=== PATIENT | male | born 1955 | race Caucasian/White ===

== ENCOUNTER 2016-12-01 07:11 | Observation (INO) | payer OTHER ==
[~2016-12-01] VITALS: Ht 175.3 cm; Wt 76.4 kg
[2016-12-01] VITALS (12 sets, daily range): BP systolic 112–156; BP diastolic 63–116; PULSE 93–111; RESP 20–28; O2SAT 92–99
[~2016-12-01 07:11] MED LIST: HYG25 PO; LISI10TA PO
--- NOTE | 2016-12-01 07:22 | ED.REPORT ---
HPI-Dyspnea / Wheezing Date of Service Dec 01, 2016 ED Provider: Kira Warren MD Pt is a 61 year old male with a hx of COPD, anxiety and HTN who presents to the ED via EMS with dyspnea onset last night. His reports that his most recent severe exacerbation was four months ago and his breathing has been getting worse with the recent cold weather. He was having trouble breathing yesterday and his symptoms have increased in severity since. Pt last saw his doctor on Tuesday. Patient is gasping for air and is only able to speak a few words intermittently. Hx is obtained from his and pt nods in response to questions. Nursing Notes Stated Complaint: SOB Chief Complaint: Respiratory Distress Nursing Notes Reviewed: Yes Allergies: Coded Allergies: No Known Allergies (Unverified , 10/17/16) Scheduled Azithromycin (Zithromax) 250 Mg Tablet 500 MG PO DAILY Chlorthalidone (Chlorthalidone) 25 Mg Tablet 25 MG PO DAILY Citalopram (Citalopram) 40 Mg Tablet 40 MG PO HS Ipratropium R[place] (Atrovent HFA) 200 Puff/12.9 Gm Inhaler 2 PUFF INH QID Lisinopril (Lisinopril) 10 Mg Tablet 10 MG PO DAILY Mometasone/Formoterol (Dulera 100 Mcg/5 Mcg Inhaler) 13 Gm Hfa.aer.ad 13 GM IH BID Nicotine 7 mg/24 hr Patch (Nicotine 7 mg/24 hr Patch) 1 Each Patch.td24 1 PATCH TOPICAL DAILY Prednisone (PredniSONE) 20 Mg Tablet 40 MG PO DAILY Scheduled PRN ([Dextromethorphan Polistirex]) 6 MG/ML SUSPENSION 30 MG PO Q12H PRN PRN For Cough Albuterol Sulfate (Ventolin HFA Inhaler) 200 Puff/18 Gm Inhaler 2 PUFF INH Q4 PRN PRN For Wheezing Ipratropium/Albuterol Sulfate (Iprat-Albut 0.5-3(2.5) mg/3 mL Inhalant Soln) 3 Ml Ampul.neb 3 ML IH Q6 PRN PRN For Shortness of Breath Naproxen (Naproxen) 500 Mg Tab 500 MG PO BID PRN PRN For Pain General Time Seen by MD: 07:22 Chief Complaint Other (dyspnea) Hx Obtained From: Spouse Arrived By: Ambulance Sudden in Onset?: Yes Onset Occurred: 1 day ago Symptom Duration: Since onset Recent Healthcare: Recent doctor visit Similar Sx Previous: Yes Past Medical History Past Medical History Notes: full code including intubation discussed in ER (12/01/16) Past Medical History Reports: COPD, Hyperlipidemia, Hypertension Reports: Depression Past Surgical History Denies Smoking History Current Every Day Smoker Social History Other Social History: Ambulatory Status Independent Review of Systems Unable to Obtain ROS Patient condition Physical Exam Initial Vital Signs Vital Signs (First) Date Time Temp Pulse Resp B/P Pulse Ox O2 Delivery O2 Flow Rate FiO2 12/01/16 07:17 36.7 97 22 155/65 94 Nasal Cannula 2 12/01/16 07:51 95 Initial VS: Reviewed Head / Eyes: Atraumatic, Normocephalic, PERRL ENT: Mucous membranes moist, Conjunctiva normal, No scleral icterus Abdomen / GI: Soft, Non-tender, No guarding, No rebound, No distention Skin: Warm, Dry, No cyanosis Neurologic: Alert, Oriented, Nonfocal Psychiatric: Mood/affect normal, Behavior normal, Normal thought content General/Constitutional: Awake, Alert, Cooperative Neck: Atraumatic, Supple, Full range of motion Resp Distress / Stridor: Positive: Resp distress severe acute COPD exacerbation tripoding and unable to speak even small words minimal air movement Cardiovascular: Heart rate NL, Regular rhythm, Heart sounds NL, No gallop, No murmurs, No rubs Interpretation & Diagnostics Lab Results Interpretation Result Diagram: 12/02/1631412/02/165 Test 12/01/16 07:40 12/01/16 09:53 12/01/16 10:00 12/01/16 10:26 D-Dimer < 0.5mg/L (<0.50) Lactic Acid Level 0.6mmol/L (0.4-2.0) Troponin T 0.010ug/L (0.0-0.011) Pro-B-Type Natriuretic Peptide 165.8pg/mL (0-210) Procalcitonin 0.05ng/mL (0.00-0.08) Urine Color Straw (YELLOW) Urine Appearance Hazy (CLEAR,HAZY) Urine pH 5.0 (5.0-8.0) Urine Specific [place] 1.030 (1.003-1.035) Urine Protein Negativemg/dL (NEG,TRACE) Urine Glucose (UA) Negativemg/dL (NEGATIVE) Urine Ketones Negativemg/dL (NEGATIVE) Urine Occult Blood Negative (NEGATIVE) Urine Nitrite Negative (NEGATIVE) Urine Bilirubin Negative (NEGATIVE) Urine Urobilinogen Normalmg/dL (NORMAL) Urine Leukocyte Esterase Negative (NEGATIVE) Urine RBC 0-2/hpf (0-2) Urine WBC 0-5/hpf (0-5) Urine Epithelial Cells Occasional/hpf (NONE-MOD) Urine Crystals None seen (NONE SEEN) Urine Bacteria Few/hpf (NONE-FEW) Urine Hyaline Casts Occasional/lpf (NONE) Urine Granular Casts None seen (NONE SEEN) Urine Waxy Casts None seen (NONE SEEN) Urine Red Blood Cell Casts None seen (NONE SEEN) Urine White Blood Cell Casts None seen (NONE SEEN) Urine Mucus Present (None Seen) Urine Trichomonas None seen (NONE SEEN) Urine Yeast None (NONE SEEN) Urinalysis Comment None Urine Culture Reflexed Not indicated Urine Legionella pneumophilia Ag Negative (Negative) Hold Urine Received (Received) Lab Results Interpretation: Blood gas report: pCO2 (67) pO2 (168.0) cHC)3 (29.6) CBase (1.5) ECG Interpretation ECG Interpretation: Bilateral englargement RBBB and LAFB Time: 07:34 Interpreted by: ED physician Normal ECG Interpretation: Normal sinus rhythm (96) X-Ray Chest Interpretation Chest Xray Interpretation: IMPRESSION: Suggests developing right sided pneumonia View: Portable Interpretation / Wet Read by: Wet read ED physician Re-Eval/Medical Decision Med Decision/Clinical Course presents with severe resp distress. Initial duoneb and 20mg albuterol, fluid, 2gm IV mag, 125mg soulmedrol improved enough to hear dramatic wheeze in all lung howard. Still wignificant work of breathing, accessory muscle use and only 1-2 words. ABG drawn at his point showing a respiratory acidosis. BiPap started. Pt tolerated with some IV ativan for anxiety related to claustrophobia. Primary process appears to be severe COPD but infectious etiolgy is not ruled out and CAP abx are started in the ER. Stable on Bipap. Admitted to hospitalist, PCU level care Re-Evaluation/Progress #1: Time of Eval: 09:24 Patient Status: Condition improved, Mild relief Re-Evaluation/Progress Note: Patient rechecked. Breathing has improved slightly. Informed pt that x-ray shows developing pneumonia. Air movement improved to the point of severe diffused wheezes. Pt can now utter a few words. Discussed need to do a blood gas. Stats at 85% on 41 nasal canula, changed to nonrebreather. Critical care time 30 min. Re-Evaluation/Progress #2: Time of Eval: 10:53 Patient Status: Condition improved, Mild relief Re-Evaluation/Progress Note: Patient rechecked. Informed patient of lab results and need for another blood gas. Informed of need for admission. Pt understands and agrees with plan. All questions addressed. Consultation : Referral / Consult Name: Tre Mullins MD Consulted With: Hospitalist Call Returned at: 11:07 Test Worker: Agrees with eval, Agrees with plan Note: Case discussed. Agrees with plan. Counseled Regarding: Diagnosis, Lab results, Need for admission Discharge & Departure Impression: Primary Impression: Hypercapnic respiratory failure Chronicity: unspecified Qualified Code: J96.92 - Respiratory failure, unspecified with hypercapnia Additional Impressions: COPD with acute exacerbation Respiratory distress Pneumonia Pneumonia type: due to unspecified organism Laterality: right Lung location : unspecified part of lung Qualified Code: J18.9 - Pneumonia, unspecified organism Ruled Out: Sepsis Disposition: ADMITTED TO HOSPITAL Discharge Condition All VS Reviewed: Yes Condition: Stable Referrals: Marlon Gaviria DO (PCP) Crit Care Except Billable Proc Time Spent: 30-74 minutes Services Performed: Patient management by me, Time spent at bedside, Reviewing test results, Reviewing imaging, Discussing patient care, Documentation in record, Time with fam/surrogate Scribe Attestation Portion of this note were transcribed by Cecilia Cardoso. I, Dr. Warren, personally performed the history, physical exam, and medical decision-making: I reviewed and confirmed the accuracy for the information in the transcribed note. Signed by: hero York, 12/01/16 0900 copies to: Marlon Gaviria Shawna L MD Dec 01, 2016 07:22 CECILIA CARDOSO Dec 01, 2016 07:34 (Received) Lab Results Interpretation: Blood gas report: pCO2 (67) pO2 (168.0) cHC)3 (29.6) CBase (1.5) ECG Interpretation ECG Interpretation: Bilateral englargement RBBB and LAFB Time: 07:34 Interpreted by: ED physician Normal ECG Interpretation: Normal sinus rhythm (96) X-Ray Chest Interpretation Chest Xray Interpretation: IMPRESSION: Suggests developing right sided pneumonia View: Portable Interpretation / Wet Read by: Wet read ED physician Re-Eval/Medical Decision Re-Evaluation/Progress #1: Time of Eval: 09:24 Patient Status: Condition improved, Mild relief Re-Evaluation/Progress Note: Patient rechecked. Breathing has improved slightly. Informed pt that x-ray shows developing pneumonia. Air movement improved to the point of severe diffused wheezes. Pt can now utter a few words. Discussed need to do a blood gas. Stats at 85% on 41 nasal canula, changed to nonrebreather. Critical care time 30 min. Re-Evaluation/Progress #2: Time of Eval: 10:53 Patient Status: Condition improved, Mild relief Re-Evaluation/Progress Note: Patient rechecked. Informed patient of lab results and need for another blood gas. Informed of need for admission. Pt understands and agrees with plan. All questions addressed. Consultation : Referral / Consult Name: Tre Mullins MD Consulted With: Hospitalist Call Returned at: 11:07 Test Worker: Agrees with eval, Agrees with plan Note: Case discussed. Agrees with plan. Counseled Regarding: Diagnosis, Lab results, Need for admission Discharge & Departure Impression: Primary Impression: Hypercapnic respiratory failure Chronicity: unspecified Qualified Code: J96.92 - Respiratory failure, unspecified with hypercapnia Additional Impressions: COPD with acute exacerbation Respiratory distress Pneumonia Pneumonia type: due to unspecified organism Laterality: right Lung location : unspecified part of lung Qualified Code: J18.9 - Pneumonia, unspecified organism Ruled Out: Sepsis Disposition: ADMITTED TO HOSPITAL Discharge Condition All VS Reviewed: Yes Condition: Stable Referrals: Marlon Gaviria DO (PCP) Hero Attestation Portion of this note were transcribed by Cecilia Cardoso. I, Dr. Warren, personally performed the history, physical exam, and medical decision-making: I reviewed and confirmed the accuracy for the information in the transcribed note. Signed by: hero York, 12/01/16 0900 copies to: Marlon Gaviria Shawna L MD Dec 01, 2016 07:22 CECILIA CARDOSO Dec 01, 2016 07:34 CECILIA CARDOSO 8, 2017 07:34
[2016-12-01] MEDS ORDERED: 0.9% Sodium Chloride 1,000 ML IV ONE (07:24)
[2016-12-01] MEDS ORDERED: cefTRIAXone Inj 2,000 MG in Dextrose 5% Minibag Plus 50 ML IV ONE (07:25)
[2016-12-01] MEDS ORDERED: MethylprednisoLONE Sodium Succinate 62.5 mg/mL 2 mL Inj IVPUSH ONE (07:25)
[2016-12-01] MEDS ORDERED: Azithromycin Inj 500 MG in Dextrose 5% w/Vial Mate 250 ML IV ONE (07:25)
[2016-12-01] MEDS ORDERED: Magnesium Sulf 2 Gm/50mL Water 2 GM in IV Premix 1 EACH IV ONE (07:25)
[2016-12-01] MEDS ORDERED: Albuterol-Ipratropium 3 mL Inhalation Solution NEB ONE (07:25)
[2016-12-01] MEDS ORDERED: Albuterol 2.5 mg/3 mL Inhalation Solution NEB ONE (07:25)
[2016-12-01] MEDS ORDERED: NPR500T PO (07:57)
[2016-12-01] MEDS ORDERED: CITA40TA13 PO (07:57)
[2016-12-01] MEDS ORDERED: ALBU18HF INH (07:58)
[2016-12-01] MEDS ORDERED: ATRINH INH (07:59)
[2016-12-01] MEDS ORDERED: IPRA3AMP IH (07:59)
[2016-12-01 08:01] LABS: BASOPHILS % (AUTO) 0.3 % (0-3); EOSINOPHILS % (AUTO) 6.4 % (0-5); MONOCYTES % (AUTO) 6.7 % (4-12); Mean Corpuscular Volume 90.8 fL (81-100); NEUTROPHILS % (AUTO) 61.4 % (40-74); Platelet Count 291 bil/L (150-400)
[2016-12-01 08:20] LABS: TROPONIN T 0.01 ug/L (0.0-0.011)
--- NOTE | 2016-12-01 09:43 | DRSVH ---
PROCEDURE: X-RAY CHEST ONE VIEW, PORTABLE ([id number]) INDICATIONS: DYSPNEA TECHNIQUE: One view of the chest was acquired. COMPARISON: None. FINDINGS: Surgical changes and devices: None. Lungs and pleura: No pleural effusions or pneumothorax. Lungs are clear. Mediastinum: Mediastinal contours appear normal. Heart size is normal. Bones and chest wall: No suspicious bony lesions. Overlying soft tissues appear unremarkable. IMPRESSION: No acute cardiopulmonary disease. Dictated by: Ming Peng [facility] Interpreted: Linda Bell MD on 12/01/2016 at 9:42 Transcribed by: JOSUE on 12/01/2016 at 9:42 Approved by: Linda Bell MD, PhD on 12/01/2016 at 17:06
[2016-12-01 10:07] LABS: APPEARANCE,URINE HAZY (CLEAR,HAZY); COLOR,URINE STRAW (YELLOW); OCCULT BLOOD,URINE NEGATIVE (NEGATIVE); UROBILINOGEN,URINE NORMAL (NORMAL)
--- NOTE | 2016-12-01 10:22 | ABG ---
DateTimeAnalyzed 10:17:00 -_ pH ____7.269 - 7.350 7.450 pCO2 ___66.7__ -mmHg 35.0 45.0 pO2 168 -mmHg 69.0 116 HCO3- ___29.6__ -mmol/L 22.0 26.0 ABE ____1.5__ -mmol/L -2.0 2.0 tHb ___12.6__ -g/dL O2Hb ___96.8__ -% COHb ____1.0__ -% MetHb ____1.0__ -% sO2 ___98.8__ -% 25.0 FIO2 ___60.0__ -% Drawn By jmw - Date/Time Notified____ 10:22:00 -_ Liter_Flow ___15.0__ -L/min Oxygen Device 1 NON RE-FERDINAND - Notified By JMW - Notified Whom DR LAURSEN - B 755 -mmHg tO2 ___17.4__ -Vol% OrderingPhysicianInitials sl - James test _Positive -
[2016-12-01] MEDS ORDERED: Albuterol 1.25 mg/3 mL Inhalation Solution NEB PRN (11:10)
[2016-12-01] MEDS ORDERED: Alum-Mag Hydrox-Simeth 30 mL Suspension PO PRN ×2 (11:10→14:30)
[2016-12-01] MEDS ORDERED: Ondansetron 2 mg/mL 2 mL Inj IVPUSH PRN ×2 (11:10→14:30)
[2016-12-01] MEDS: 0.9% Sodium Chloride 1,000 ML IV SCH ×2 (11:55→22:49)
--- NOTE | 2016-12-01 13:05 | NUR ---
Bipap Pt was placed on Bipap just prior to coming to PCC floor. Pt also has anxiety about Bipap and therefore given 1mg of IV ativan with good effect. Pt placed on continuos pulse ox for both bipap and high TEO score.
[2016-12-01] MEDS ORDERED: Albuterol-Ipratropium 3 mL Inhalation Solution NEB SCH (14:30)
[2016-12-01] MEDS ORDERED: Polyethylene Glycol (PEG) 17 Gm Powder PO PRN (14:30)
[2016-12-01] MEDS ORDERED: Dextromethorphan Polistirix 6 mg/mL 90 mL Suspension PO PRN (15:10)
[2016-12-01] MEDS ORDERED: MethylprednisoLONE Sodium Succinate 40 mg/mL Inj IVPUSH SCH (15:30)
[2016-12-01] MEDS: MethylprednisoLONE Sodium Succinate 62.5 mg/mL 2 mL Inj IVPUSH SCH ×2 (15:56→19:49)
[2016-12-01] MEDS: Heparin 5,000 Unit/mL Inj SUBQ SCH ×2 (15:56→19:49)
[2016-12-01] MEDS: guaiFENesin 20 mg/mL 10 mL Syrup PO PRN (15:56)
[2016-12-01] MEDS ORDERED: LORazepam 0.5 mg Tablet PO PRN (17:15)
--- NOTE | 2016-12-01 17:23 | PCM.HPMED ---
Subjective Date of Service Dec 01, 2016 Primary Provider: Admitting Physician: Tre Mullins MD Primary Care Physician: aMrlon Gaviria DO Attending Physician: Tre Mullins MD Chief Complaint: Shortness of breath History of Present Illness: Mr. Patrick Perez is a 61 year old male with a history of COPD, anxiety, hypertension and hyperlipidemia who presents to the ED via EMS with dyspnea onset last night. His reports that his most recent severe exacerbation was four months ago and his breathing has been getting worse with the recent cold weather. He was having trouble breathing yesterday and his symptoms have increased in severity since, to the point that he used nebulizers twice this morning without any relief. His checked his O2 saturation and found it at 79%, and called EMS. He reports increasing shortness of breath on exertion to the point that he cannot walk around his living room, possibly worse on lying supine. He also reports a worsening nonproductive cough, wheezing, and reports he has been awakened multiple times with shortness of breath. He denies nausea, vomiting, diarrhea, fevers, chills, chest pain, sinus congestion, sore throat, recent URI symptoms, or sick contacts. He is not on home oxygen. He recently changed his inhaled steroid from Qvar to Aerospan and has been unable to tolerate Aerospan, so has not been on an inhaled steroid. He has been having dyspnea on and off for the last month. The last few days he has been using his inhaler more than 5 times per day and his nebulizer more than 2 times per day. In the ED, he was afebrile, HR 99, RR 24, O2 93 on nasal cannula. WBC 11.8. CBC and CMP otherwise fairly normal. CXR suggests possible developing right sided pneumonia. ABG showed pH 7.27, pCO2 67, bicarb 29.6. Pt in significant respiratory distress and tripoding in the ED and was placed on BiPAP. Review of Systems: Comprehensive review of systems conducted and was negative except for the pertinent positives listed above. 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 40 year pack history.) Smoking Status: Current Every Day Smoker Exam Vital Signs Vital Sign - Last Date Time Temp Pulse Resp B/P Pulse Ox O2 Delivery O2 Flow Rate FiO2 12/01/16 16:50 Supplement Oxygen 12/01/16 15:20 36.5 109 24 139/71 94 11.00 12/01/16 12:40 40 Exam General: Alert, Oriented X3, Cooperative, Moderate respiratory distress, leaning forward, accessory muscles use. On BiPAP, able to speak 2-3 work sentences. Head: Normocephalic, atraumatic. External ears normal. Eyes: PERRLA, EOMI. Anicteric sclerae. Mouth: Mouth Normal, Mucous Membranes Dry Neck: Neck supple with full range of motion. Chest & Lungs: Poor breath sounds, wheezes and rhonchi present. Cardiovascular: Regular Rate/Rhythm, Normal S1, Normal S2, No Murmurs/Rubs/ Gallops Abdomen: Non-tender, Non-distended, No masses, Normoactive bowel tones, Soft Musculoskeletal: Normal Range of Motion Extremities: No cyanosis/clubbing/edema bilaterally Neurological: Grossly Neurologically Intact, Normal Speech Lab and Diagnostics Result Diagram: 12/01/1673912/01/16739 Assessment & Plan Mr. Patrick Perez is a 61 year old male with a history of COPD, anxiety, hypertension and hyperlipidemia who presents to the ED via EMS with dyspnea onset last night. Admitted for acute hypercapnic respiratory failure and COPD exacerbation. 1. Acute hypercapnic respiratory failure. Present on admission. Active. - ABG showed pH 7.27, pCO2 67, bicarb 29.6. Took patient off BiPAP, placed on nasal cannula. Secondary to acute COPD exacerbation. - BiPAP as needed, wean off as tolerated to supplemental oxygen - Keep O2 sat 88-92%. 2. Acute on chronic COPD exacerbation. Present on admission. Active. - He is currently on Albuterol and ipratropium inhalers at home, but will need to be on a long-acting beta agonist and an inhaled steroid by discharge. - Received Solu-Medrol 125 mg in ED - Solu-Medrol 60 mg QID for 1 day, then decrease dose - Duoneb QID while awake - Albuterol neb q2h PRN - Azithromycin 500 mg PO daily - Guaifenesin and Dextromethorphan 3. Possible pneumonia, acute. Present on admission. - CXR suggests possible developing right sided pneumonia, although this is questionable. - Respiratory viral PCR ordered - Blood and sputum cultures ordered - Urine Legionella and Strep ordered 4. Tobacco use, chronic. - Pt smoked 40 pack years, cut down from 1 pack/day to 3 cigarettes/day last . - Advised pt to quit smoking. - Nicotine patch 5. Anxiety and depression - Pt reports significant anxiety worsened by shortness of breath and wearing BiPAP - Ativan PO TID PRN anxiety - Continue citalopram 6. Hypertension, chronic. - Continue chlorthalidone and lisinopril 7. Hyperlipidemia, chronic - Bowel regimen as needed - Antiemetic as needed INPATIENT: Patient is admitted under inpatient status with expected length of stay greater than 2 midnights due to severity of presenting symptoms, risk of adverse event, and complexity of treatment plan. Pain Evaluation: Adequate Pain Control VTE Prophylaxis: Sub-Q Heparin (Unfractionated) Resuscitation Status: CPR: Attempt Resuscitation Attending Statement The patient was seen and examined together with Dr. Mirza on 12/01/2016 and I agree with the history, exam and plan as outlined in the note above. . Juan C Mirza Dec 01, 2016 17:23 Tre Mullins MD Dec 03, 2016 17:36
[2016-12-01] MEDS: Albuterol-Ipratropium 3 mL Inhalation Solution NEB SCH (21:06)
[2016-12-02] VITALS (7 sets, daily range): BP systolic 133–143; BP diastolic 67–80; PULSE 72–95; RESP 16–22; O2SAT 90–99
--- NOTE | 2016-12-02 00:17 | NUR ---
BiPAP/SOB/COUGH Pt c/o SOB r/t aggressive coughing fits. Pt on 2L NC sating in low 90's at this time. Pt did receive guaifenisen with codeine with good results. Pt did request to not be on BiPAP this evening due to his claustrophobia and the BiPAP mask. RT agreed and pt remained on 2L NC with the continuos pulse oximeter on. Pt's SPO2 remained stable in the low 90's.
[2016-12-02] MEDS: guaiFENesin 20 mg/mL 10 mL Syrup PO PRN ×2 (03:17→05:17)
[2016-12-02 03:43] LABS: BASOPHILS % (AUTO) 0 % (0-3); EOSINOPHILS % (AUTO) 0 % (0-5); MONOCYTES % (AUTO) 4.2 % (4-12); Mean Corpuscular Hemoglobin 30.7 pg (27.0-35.0); Mean Corpuscular Volume 92.2 fL (81-100); NEUTROPHILS % (AUTO) 75.5 % (40-74); Platelet Count 253 bil/L (150-400)
[2016-12-02] MEDS: Albuterol-Ipratropium 3 mL Inhalation Solution NEB SCH ×2 (06:34→11:07)
[2016-12-02] MEDS: 0.9% Sodium Chloride 1,000 ML IV SCH (08:51)
[2016-12-02] MEDS: MethylprednisoLONE Sodium Succinate 62.5 mg/mL 2 mL Inj IVPUSH SCH (08:52)
[2016-12-02] MEDS: Heparin 5,000 Unit/mL Inj SUBQ SCH (08:54)
[2016-12-02] MEDS ORDERED: FLUT1DIS5 IH (11:07)
--- NOTE | 2016-12-02 11:09 | NUR ---
Respiratory BiPap on [place], Pt stated did not use last night, not feeling SOB
--- NOTE | 2016-12-02 12:00 | NUR ---
Ambulation Pt ambulating in hallway on RA and O2 stayed between 88%-90%. No c/o pain, SOB or dizziness.
[2016-12-02] MEDS ORDERED: NIC7 TOPICAL (12:05)
[2016-12-02] MEDS ORDERED: ZIT250 PO (12:05)
[2016-12-02] MEDS ORDERED: DEXTROMETHORPHAN POLISTIREX PO (12:05)
[2016-12-02] MEDS ORDERED: PRE20 PO (12:05)
--- NOTE | 2016-12-02 12:09 | PCM.DIMED ---
Meghna Thompson DO 12/02/16 1209: Discharge Instructions Date of Service Dec 02, 2016 Dates of Hospitalization Dec 01, 2016 at 11:12 Discharge Diagnosis Discharge Diagnosis 1. Acute hypercapnic respiratory failure 2. Acute on chronic COPD exacerbation 3. Possible pneumonia 4. Tobacco use 5. Anxiety and depression 6. Hypertension 7. Hyperlipidemia Diet Heart Healthy Activity Limited until seen by PCP Call your provider Fever or Chills, Shortness of breath, Bleeding, Chest pain, Weakness (unilateral ) Patient Instructions Continue your albuterol inhaler as needed for shortness of breath or wheezing and ipratropium inhaler twice per day as previously prescribed. Also, continue to use your nebulizer treatments as needed for shortness of breath or wheeze. Start the mometasone/formoterol (Dulera) inhaler by inhaling 2 puffs in the morning and 2 puff in the evening each day. Make sure that you rinse your mouth with water after using this inhaler. Take prednisone 20 mg tablets by taking 2 tablets by mouth once daily for 5 days. Finish the azithromycin 250 mg tablets antibiotics by taking 2 tablets by mouth each day for 5 days. You can continue to take dextromethorphan (Delsym) 6 mg/mL suspension by taking 30 mg (5mL) of the cough syrup every 12 hours as needed for cough. I encourage you to quit smoking. I have prescribed nicotine patches for you to use and you can apply one patch to your upper arm once per day. Remove the previous patch before applying a new patch. You can also call 1-294-BVTU-NOW as a resource. Follow up with your primary care provider in 1 week. Follow-up Provider: Ted Townsend DO Follow-up with PCP in: 1 week Tre Mullins MD 12/03/16 1735: Discharge Instructions Attending's Statement The patient was seen and examined together with Dr. Thompson on 12/02/2016 and I agree with the history, exam and plan as outlined in the note above. . Meghna Thompson DO Dec 02, 2016 12:09 Tre Mullins MD Dec 03, 2016 17:35
[2016-12-02] MEDS ORDERED: MOME13HF2 IH (13:11)
--- NOTE | 2016-12-02 14:52 | NUR ---
Discharge Pt left with at 1445 A&Ox3, walked out to private car. Tele and IV removed prior to DC. All instructions gone over and understood, Questions answered. Prescriptions sent with and to be filled at pharmacy.
--- NOTE | 2016-12-03 21:45 | PCM.DC.MED ---
Discharge Summary Date of Service Dec 02, 2016 Dates of Hospitalization Date of Hospital Admission Dec 01, 2016 at 11:12 Date of Discharge: Dec 02, 2016 Providers: Admitting Physician: Tre Mullins MD Primary Care Physician: Marlon Gaviria DO Attending Physician: Tre Mullins MD Diagnosis at Time of Discharge Diagnosis at Time of Discharge 1. Acute hypercapnic respiratory failure 2. Acute on chronic COPD exacerbation 3. Possible pneumonia 4. Tobacco use 5. Anxiety and depression 6. Hypertension 7. Hyperlipidemia Procedures XRay, CTs & MRIs PROCEDURE: X-RAY CHEST ONE VIEW, PORTABLE IMPRESSION: No acute cardiopulmonary disease. Approved by: Linda Bell MD, PhD on 12/01/2016 at 17:06 Brief History From the history and physical performed by Dr. Juan C Mirza on 12/01/2016: Mr. Patrick Perez is a 61 year old male with a history of COPD, anxiety, hypertension and hyperlipidemia who presents to the ED via EMS with dyspnea onset last night. His reports that his most recent severe exacerbation was four months ago and his breathing has been getting worse with the recent cold weather. He was having trouble breathing yesterday and his symptoms have increased in severity since, to the point that he used nebulizers twice this morning without any relief. His checked his O2 saturation and found it at 79%, and called EMS. He reports increasing shortness of breath on exertion to the point that he cannot walk around his living room, possibly worse on lying supine. He also reports a worsening nonproductive cough, wheezing, and reports he has been awakened multiple times with shortness of breath. He denies nausea, vomiting, diarrhea, fevers, chills, chest pain, sinus congestion, sore throat, recent URI symptoms, or sick contacts. He is not on home oxygen. He recently changed his inhaled steroid from Qvar to Aerospan and has been unable to tolerate Aerospan, so has not been on an inhaled steroid. He has been having dyspnea on and off for the last month. The last few days he has been using his inhaler more than 5 times per day and his nebulizer more than 2 times per day. In the ED, he was afebrile, HR 99, RR 24, O2 93 on nasal cannula. WBC 11.8. CBC and CMP otherwise fairly normal. CXR suggests possible developing right sided pneumonia. ABG showed pH 7.27, pCO2 67, bicarb 29.6. Pt in significant respiratory distress and tripoding in the ED and was placed on BiPAP. Hospital Course Mr. Patrick Perez is a 61 year old male with a history of chronic obstructive pulmonary disease, anxiety, hypertension and hyperlipidemia who presents to the emergency department via emergency medical services with dyspnea onset last night. Admitted for acute hypercapnic respiratory failure and chronic obstructive pulmonary disease exacerbation. 1. Acute hypercapnic respiratory failure. Present on admission. Improved. - Arterial blood gas showed pH 7.27, pCO2 67, bicarb 29.6. Took patient off BiPAP, placed on nasal cannula. Secondary to acute chronic obstructive pulmonary disease exacerbation. - BiPAP was used as needed, weaned off as tolerated to supplemental oxygen - Kept oxygen saturation 88-92%. - Patient was able to walk multiple laps around the hospital floor without any issues - Patient was 91% on room air 2. Acute on chronic chronic obstructive pulmonary disease exacerbation. Present on admission. Improved. - He was on albuterol and ipratropium inhalers at home. - Received methylprednisolone 125 mg in emergency department - Methylprednisolone 60 mg four times per day for 1 day was given - Duoneb four times per day while awake - Albuterol nebulizer every 2 hours as needed - Azithromycin 500 mg by mouth daily started - Guaifenesin and dextromethorphan given as needed for cough 3. Possible pneumonia, acute. Present on admission. - Chest x-ray suggested possible developing right sided pneumonia, although this was not certain. - Respiratory viral PCR negative - Blood cultures negative - Urine Legionella and Streptococcal pneumoniae negative 4. Tobacco use, chronic. - Patient smoked 40 pack years, cut down from 1 pack/day to 3 cigarettes/day last . - Advised patient to quit smoking. - Nicotine patch given 5. Anxiety and depression - Pt reported significant anxiety worsened by shortness of breath and wearing BiPAP - Ativan by mouth three times per day as needed for anxiety - Continued citalopram 6. Hypertension, chronic. - Continued chlorthalidone and lisinopril 7. Hyperlipidemia, chronic Exam Vital Signs (Last) Date Time Temp Pulse Resp B/P Pulse Ox O2 Delivery O2 Flow Rate FiO2 12/02/16 12:02 36.8 72 18 138/67 91 Room Air 12/02/16 08:48 2.00 12/01/16 12:40 40 Exam General: Alert, Oriented X3, Cooperative, No respiratory distress. Head: Normocephalic, atraumatic. External ears normal. Eyes: PERRLA, EOMI. Anicteric sclerae. Mouth: Mouth Normal, Mucous Membranes Dry Neck: Neck supple with full range of motion. Chest & Lungs: Equal breath sounds bilaterally, Mild end-expiratory wheezes present. Cardiovascular: Regular Rate/Rhythm, Normal S1, Normal S2, No Murmurs/Rubs/ Gallops Abdomen: Non-tender, Non-distended, No masses, Normoactive bowel tones, Soft Musculoskeletal: Normal Range of Motion Extremities: No cyanosis/clubbing/edema bilaterally Neurological: Grossly Neurologically Intact, Normal Speech Test 12/01/16 07:40 12/01/16 09:53 12/01/16 10:00 12/01/16 10:26 D-Dimer < 0.5mg/L (<0.50) Lactic Acid Level 0.6mmol/L (0.4-2.0) Troponin T 0.010ug/L (0.0-0.011) Pro-B-Type Natriuretic Peptide 165.8pg/mL (0-210) Procalcitonin 0.05ng/mL (0.00-0.08) Urine Color Straw (YELLOW) Urine Appearance Hazy (CLEAR,HAZY) Urine pH 5.0 (5.0-8.0) Urine Specific [place] 1.030 (1.003-1.035) Urine Protein Negativemg/dL (NEG,TRACE) Urine Glucose (UA) Negativemg/dL (NEGATIVE) Urine Ketones Negativemg/dL (NEGATIVE) Urine Occult Blood Negative (NEGATIVE) Urine Nitrite Negative (NEGATIVE) Urine Bilirubin Negative (NEGATIVE) Urine Urobilinogen Normalmg/dL (NORMAL) Urine Leukocyte Esterase Negative (NEGATIVE) Urine RBC 0-2/hpf (0-2) Urine WBC 0-5/hpf (0-5) Urine Epithelial Cells Occasional/hpf (NONE-MOD) Urine Crystals None seen (NONE SEEN) Urine Bacteria Few/hpf (NONE-FEW) Urine Hyaline Casts Occasional/lpf (NONE) Urine Granular Casts None seen (NONE SEEN) Urine Waxy Casts None seen (NONE SEEN) Urine Red Blood Cell Casts None seen (NONE SEEN) Urine White Blood Cell Casts None seen (NONE SEEN) Urine Mucus Present (None Seen) Urine Trichomonas None seen (NONE SEEN) Urine Yeast None (NONE SEEN) Urinalysis Comment None Urine Culture Reflexed Not indicated Urine Legionella pneumophilia Ag Negative (Negative) Hold Urine Received (Received) Test 12/02/16 03:15 White Blood Count 8.8th/mm3 (3.8-10.1) Red Blood Count 3.74mil/mm3 (4.40-5.80) Hemoglobin 11.5g/dL (13.8-17.2) Hematocrit 34.5% (41.0-50.0) Mean Corpuscular Volume 92.2fL (81-100) Mean Corpuscular Hemoglobin 30.7pg (27.0-35.0) Mean Corpuscular Hemoglobin Concent 33.3% (32.0-37.0) Red Cell Distribution Width 13.7% (12.3-15.4) Platelet Count 253bil/L (150-400) Neutrophils (%) (Auto) 75.5% (40-74) Lymphocytes (%) (Auto) 20.1% (14-46) Monocytes (%) (Auto) 4.2% (4-12) Eosinophils (%) (Auto) 0% (0-5) Basophils (%) (Auto) 0% (0-3) Sodium Level 137mEq/L (134-144) Potassium Level 4.5mEq/L (3.5-5.2) Chloride Level 97mEq/L (97-108) Carbon Dioxide Level 32mmol/L (18-29) Blood Urea Nitrogen 17mg/dL (6-24) Creatinine 0.46mg/dL (0.76-1.27) Estimat Glomerular Filtration Rate 199mL/min (>59) Glucose Level 122mg/dL (60-99) Calcium Level 8.5mg/dL (8.5-10.1) Total Bilirubin 0.2mg/dL (0.0-1.2) Aspartate Amino Transf (AST/SGOT) 22U/L (0-50) Alanine Aminotransferase (ALT/SGPT) 23U/L (0-44) Alkaline Phosphatase 64U/L (25-160) Total Protein 5.7g/dL (6.4-8.4) Albumin 3.7g/dL (3.4-5.0) Discharge Medications Discharge Medications Azithromycin (Zithromax) 250 Mg Tablet 500 MG PO DAILY Prescribed by: DORA THOMPSON DO Chlorthalidone (Chlorthalidone) 25 Mg Tablet 25 MG PO DAILY Prescribed by: NORA NAJERA MD Citalopram (Citalopram) 40 Mg Tablet 40 MG PO HS (Reported) Ipratropium [place] (Atrovent HFA) 200 Puff/12.9 Gm Inhaler 2 PUFF INH QID ( Reported) Lisinopril (Lisinopril) 10 Mg Tablet 10 MG PO DAILY Prescribed by: NORA NAJERA MD Mometasone/Formoterol (Dulera 100 Mcg/5 Mcg Inhaler) 13 Gm Hfa.aer.ad 13 GM IH BID Prescribed by: DORA THOMPSON DO Nicotine 7 mg/24 hr Patch (Nicotine 7 mg/24 hr Patch) 1 Each Patch.td24 1 PATCH TOPICAL DAILY Prescribed by: DORA THOMPSON DO Prednisone (PredniSONE) 20 Mg Tablet 40 MG PO DAILY Prescribed by: DORA THOMPSON DO As needed ([Dextromethorphan Polistirex]) 6 MG/ML SUSPENSION 30 MG PO Q12H PRN PRN For Cough Prescribed by: DORA THOMPSON DO Albuterol Sulfate (Ventolin HFA Inhaler) 200 Puff/18 Gm Inhaler 2 PUFF INH Q4 PRN PRN For Wheezing (Reported) Ipratropium/Albuterol Sulfate (Iprat-Albut 0.5-3(2.5) mg/3 mL Inhalant Soln) 3 Ml Ampul.neb 3 ML IH Q6 PRN PRN For Shortness of Breath (Reported) Naproxen (Naproxen) 500 Mg Tab 500 MG PO BID PRN PRN For Pain (Reported) Followup Plan Discharge Diet: Heart Healthy Discharge Activity: Limited until seen by PCP Patient Instructions Continue your albuterol inhaler as needed for shortness of breath or wheezing and ipratropium inhaler twice per day as previously prescribed. Also, continue to use your nebulizer treatments as needed for shortness of breath or wheeze. Start the mometasone/formoterol (Dulera) inhaler by inhaling 2 puffs in the morning and 2 puff in the evening each day. Make sure that you rinse your mouth with water after using this inhaler. Take prednisone 20 mg tablets by taking 2 tablets by mouth once daily for 5 days. Finish the azithromycin 250 mg tablets antibiotics by taking 2 tablets by mouth each day for 5 days. You can continue to take dextromethorphan (Delsym) 6 mg/mL suspension by taking 30 mg (5mL) of the cough syrup every 12 hours as needed for cough. I encourage you to quit smoking. I have prescribed nicotine patches for you to use and you can apply one patch to your upper arm once per day. Remove the previous patch before applying a new patch. You can also call 2-337-OSQF-NOW as a resource. Follow up with your primary care provider in 1 week. Follow-up Provider: Ted Townsend DO Follow-up with PCP in: 1 week Time spent Greater than 30 minutes was spent in preparation of discharge with greater than 50% of that time dedicated to patient counseling and coordination of care. . Attending Statement The patient was seen and examined together with Dr. Thompson on 12/02/2016 and I agree with the history, exam and plan as outlined in the note above. . copies to: Ted Townsend Marissa L DO Dec 02, 2016 13:51 Tre Mullins MD Dec 04, 2016 07:39
[2017-01-20] MEDS ORDERED: SILD100T PO (14:51)
[2017-01-20] MEDS ORDERED: BENZ100C8 PO (14:51)
[2017-01-20] MEDS ORDERED: BECL8.7A6 INHALATION (14:51)
[2017-01-20] MEDS ORDERED: FLUN8.9H IH (14:51)
[2017-01-20] MEDS ORDERED: ROB500 PO (14:51)
== END 2016-12-02 14:43 | disposition home or self-care (01) ==
LOC: SED 07:11 → INTOOBSV 11:12 → PCC 11:12
PROVIDERS: ADMIT Internal Medicine; ATTEND Internal Medicine
DX: J96.92 Respiratory failure, unspecified with hypercapnia (principal); J44.1 Chronic obstructive pulmonary disease with (acute) exacerbation; F17.210 Nicotine dependence, cigarettes, uncomplicated; F41.9 Anxiety disorder, unspecified; F32.9 Major depressive disorder, single episode, unspecified; I10 Essential (primary) hypertension; E78.5 Hyperlipidemia, unspecified; Z79.51 Long term (current) use of inhaled steroids
CPT/HCPCS: 36415; 36620; 71010; 80053; 81000; 82308; 82375; 82803; 83605; 83880; 84484; 85025; 85379; 86403; 87040; 87449; 87633; 93005; 94640; 94644; 94660; 94664; 96365; 96366; 96367; 96375; 99291; J0456; J0696; J1644; J2060; J2930; J7030; J7613; J7620

== ENCOUNTER 2017-01-21 07:18 | Day surgery (SDC) | payer OTHER ==
[~2017-01-21] VITALS: Ht 175.3 cm; Wt 78.0 kg
[~2017-01-21 07:18] MED LIST changes: +0.9% Sodium Chloride 1,000 ML IV SCH; +ALBU18HF INH; +ATRINH INH; +BECL8.7A6 INHALATION; +BENZ100C8 PO; +CITA40TA13 PO; +FLUN8.9H IH; +IPRA3AMP IH; +MOME13HF2 IH; +NIC7 TOPICAL; +NPR500T PO; +ROB500 PO; +SILD100T PO; +Sodium Chloride LOK Flush 10 mL Syringe IV PRN; +fentaNYL-PF 50 mCg/mL 2 mL Inj IVPUSH PRN
[2017-01-21 07:44] VITALS: BP 120/80; PULSE 70; RESP 14; O2SAT 94
[2017-01-21 08:22] VITALS: BP 89/63; PULSE 68; RESP 16; O2SAT 92
--- NOTE | 2017-01-21 08:26 | ENDO ---
[address] [address] ENDOSCOPY PROCEDURE PATIENT: DILMA CORREA : 1955 MR#: [id number] ADMIT: 01/21/2017 JOB ID: [id number] DATE: 01/21/2017 TYPE OF OPERATION: Colonoscopy with biopsy. PREOPERATIVE DIAGNOSIS(ES): Family history of colon cancer. POSTOPERATIVE DIAGNOSIS(ES): 1. Mild sigmoid diverticulosis. 2. A 2 mm sigmoid polyp removed by cold biopsy forceps. ANESTHESIA: 1. Fentanyl 125 mcg. 2. Versed 6 mg IV administered. COMPLICATIONS: None. BLOOD LOSS: Minimal. DESCRIPTION OF PROCEDURE: After risks and benefits were explained to the patient, informed consent was obtained. After anesthesia administered, colonoscope was inserted per rectum to cecum. Mucosa carefully examined. Prep of the patient was fair. After procedure was done, scope withdrawn and procedure terminated. FINDINGS: Upon inspection of the anus, no masses, hemorrhoids, ulcers, or fissures that were seen. Throughout the entire examination, there was nonbleeding mild sigmoid diverticulosis. There was also a 2 mm polyp removed in the sigmoid colon by cold biopsy forceps. Retroflexion was normal. IMPRESSIONS: 1. A 2 mm sigmoid colon polyp removed by cold biopsy. 2. Sigmoid diverticulosis. RECOMMENDATIONS: 1. Await pathology results. 2. Repeat colonoscopy in five years given family history of colon cancer. 3. High fiber diet.
[2017-01-21 08:32] VITALS: BP 100/64; PULSE 72; RESP 16; O2SAT 92
--- NOTE | 2017-01-25 11:39 | PATH ---
SURGICAL PATHOLOGY Attending Physician:Marlon Chavez MD CASE STATUS: Signed Out PATIENT NAME: DILMA CORREA PID: [id number] : 1955 DATE COLLECTED:01/21/2017 18:37 SPECIMEN: Colon, Biopsy CLINICAL HISTORY: 1). SIGMOID POLYP FINAL DIAGNOSIS: Sigmoid Colon Polyp: Tubular adenoma involving single biopsy fragment. ICD10 D12.5 GROSS DESCRIPTION: The specimen is received in one formalin filled container labeled with the patient's name, sublabeled "sigmoid polyp" and consists of 2 portions of tissue which aggregate to 0.3 x 0.3 x 0.2 CM. The specimen is entirely submitted in one cassette. 01/21/2017 [facility] ICD-9 CODES: CPT CODES: 1: 53054 Electronically Signed Out Jonh Craven MD [facility] [address] [facility], [place] [address] Technical component performed at [facility], [address] [place] [address] [address], [place], [address]
== END 2017-01-21 23:59 | disposition home or self-care (01) ==
LOC: END 07:18
PROVIDERS: ATTEND Internal Medicine Gastroenterology
DX: Z12.11 Encounter for screening for malignant neoplasm of colon (principal); Z80.0 Family history of malignant neoplasm of digestive organs; D12.5 Benign neoplasm of sigmoid colon; J44.9 Chronic obstructive pulmonary disease, unspecified; I10 Essential (primary) hypertension
CPT/HCPCS: 45380; 99153; G0500; J7030